=== PATIENT | female | born 1965 | race Caucasian/White ===

== ENCOUNTER 2016-08-06 11:25 | Emergency (ER) | payer MEDICARE, OTHER ==
[~2016-08-06 11:25] MED LIST: ANTIVERT 25MG T25 MG PO; ATENOLOL50 MG PO; BENZONATATE200 MG PO; COUMADIN2 MG PO; COUMADIN5 MG PO; CYMBALTA 20 MG20 MG PO; LANOXIN TAB0.125 MG PO; LEVAQUIN750 MG PO; LIPITOR40 MG PO; ROBITUSSIN100 MG/51 PO; SYNTHROID100 MCG PO; TOPAMAX100 MG PO; TYLENOL 325MG325 MG PO; VITAMIN D2000 UNI1 PO; XANAX0.25 MG PO; XOPENEX HFA15 GM INH
== END 2016-08-06 12:50 | disposition home or self-care (01) ==
LOC: ER1 11:25
DX: M79.651 Pain in right thigh (principal); I51.9 Heart disease, unspecified; Z79.01 Long term (current) use of anticoagulants; Z88.1 Allergy status to other antibiotic agents; Z88.8 Allergy status to other drugs, medicaments and biological substances
CPT/HCPCS: 85610; 99283

== ENCOUNTER → 2016-08-31 | Outpatient (CLI) | payer MEDICARE, OTHER | LOC: US 11:30 | DX: I34.8 Other nonrheumatic mitral valve disorders (principal); I35.8 Other nonrheumatic aortic valve disorders; I35.0 Nonrheumatic aortic (valve) stenosis; I48.2 Chronic atrial fibrillation; Q87.418 Marfan syndrome with other cardiovascular manifestations; I65.23 Occlusion and stenosis of bilateral carotid arteries | CPT/HCPCS: 93880 ==

== ENCOUNTER → 2016-09-05 | Outpatient (CLI) | payer MEDICARE, OTHER | LOC: RT 12:54 | DX: R91.8 Other nonspecific abnormal finding of lung field (principal); R05 Cough; E03.8 Other specified hypothyroidism; F41.1 Generalized anxiety disorder; G44.89 Other headache syndrome; I34.8 Other nonrheumatic mitral valve disorders; I35.8 Other nonrheumatic aortic valve disorders; I48.2 Chronic atrial fibrillation; I50.22 Chronic systolic (congestive) heart failure; J06.9 Acute upper respiratory infection, unspecified; J20.9 Acute bronchitis, unspecified; M62.81 Muscle weakness (generalized); M85.9 Disorder of bone density and structure, unspecified; N95.8 Other specified menopausal and perimenopausal disorders; Q87.418 Marfan syndrome with other cardiovascular manifestations; R07.89 Other chest pain; R11.0 Nausea; R23.8 Other skin changes; R53.83 Other fatigue; R63.5 Abnormal weight gain; F17.210 Nicotine dependence, cigarettes, uncomplicated; R94.2 Abnormal results of pulmonary function studies | CPT/HCPCS: 94060; 94729 ==